=== PATIENT | male | born 1970 ===

== ENCOUNTER 2016-08-27 08:36 | Emergency (ER) | payer BC ==
--- NOTE | 2016-08-27 09:27 | ED PDOC ---
Arrival/HPI - General Chief Complaint: GI Problem Time Seen by Provider: 08/27/16 09:05 - History of Present Illness Narrative History of Present Illness (Text): 08/27/16 09:35 Patient is a 46 y/o M with hx of hemorrhoids presenting with hemorrhoids. Patient reports that he has had hemorrhoids for over 4 years. He reports hx of chronic constipation and he reports that he has pain with defecation secondary to his hemorrhoids. He denies bleeding or blood in stool (does report hx of ruptured hemorrhoid years ago). He reports that over the last week his hemorrhoids have become worse. He reports that he went to a hospital in [place] and was given medication for pain but nothing else. Denies fever, abdominal pain, chest pain, shortness of breath. Past Medical History - Provider Review Nursing Documentation Reviewed: Yes - Travel History Have you recently traveled outside [place] w/in the past 3 mons?: Yes If Yes, travel location?: [place] - Cardiac Hx Cardiac Disorders: Yes Hx Hypertension: Yes - Gastrointestinal Hx Gastrointestinal Disorders: Yes Hx Hemorrhoids: Yes - Psychiatric Hx Substance Use: No - Anesthesia Hx Anesthesia: Yes Hx Anesthesia Reactions: No Family/Social History Family/Social History: No Known Family HX Smoking Status: Light Smoker < 10 Cigarettes Daily Hx Alcohol Use: Yes Frequency of alcohol use: Socially Hx Substance Use: No Allergies/Home Meds Allergies/Adverse Reactions: Allergies No Known Allergies Allergy (Unverified 08/27/16 09:21) Review of Systems - Review of Systems Constitutional: absent: Fatigue, Weight Change, Fevers, Night Sweats Eyes: absent: Vision Changes ENT: absent: Hearing Changes Respiratory: absent: SOB, Cough, Sputum, Wheezing Cardiovascular: absent: Chest Pain, Palpitations, Edema Gastrointestinal: Constipation, Other (hemorrhoids). absent: Abdominal Pain, Diarrhea, Nausea, Vomiting, Appetite Changes, Hematochezia, Hematemesis, Anorexia Genitourinary Male: absent: Dysuria, Frequency, Hematuria, Urinary Output Changes Musculoskeletal: absent: Arthralgias Skin: absent: Rash Neurological: absent: Headache, Dizziness, Focal Weakness, Gait Changes, Speech Changes, Facial Droop, Disequilibrium Psychiatric: absent: Anxiety Physical Exam Vital Signs Temp Pulse Resp BP Pulse Ox 08/27/16 09:45 142/88 08/27/16 08:45 97.6 F 79 18 99 Temperature: Afebrile Blood Pressure: Normal Pulse: Regular Respiratory Rate: Normal Appearance: Positive for: Well-Appearing, Non-Toxic, Comfortable Pain Distress: None Mental Status: Positive for: Alert and Oriented X 3 - Systems Exam Head: Present: Atraumatic, Normocephalic Pupils: Present: PERRL Extroacular Muscles: Present: EOMI Conjunctiva: Present: Normal Mouth: Present: Moist Mucous Membranes Neck: Present: Normal Range of Motion Respiratory/Chest: Present: Clear to Auscultation, Good Air Exchange. No: Respiratory Distress, Accessory Muscle Use Cardiovascular: Present: Regular Rate and Rhythm, Normal S1, S2. No: Murmurs Abdomen: Present: Other (soft external hemorrhoids that are skin colored and reducible. normal sphincter tone. ). No: Tenderness, Distention, Peritoneal Signs, Rebound, Guarding Rectal: Present: Hemorrhoids, Normal Rectal Tone. No: Gross Blood, Melena Upper Extremity: Present: Normal Inspection Lower Extremity: Present: Normal Inspection Neurological: Present: GCS=15, CN II-XII Intact, Speech Normal Psychiatric: Present: Alert, Oriented x 3 Medical Decision Making ED Course and Treatment: 08/27/16 09:41 Patient has soft reducible external hemorrhoids. With the use of a artificial glass eye maker I gave patient detailed return instructions which he reports he understands due to hx of prior hemorrhoidal bleeding. He was given toradol IM, preparation h and stool softener in ED. He was instructed to use preparation h cream, sitz bath and stool softener. He was instructed to follow-up with PMD and GI due to constipation and for referral to surgery for further evaluation if desired. - Medication Orders Current Medication Orders: Phenylephrine HCl (Preparation H Suppositories) 1 supp VT STAT STA Stop: 08/27/16 10:57 Discontinued Medications Docusate Sodium (Colace) 100 mg PO STAT STA Stop: 08/27/16 09:23 Last Admin: 08/27/16 09:45 Dose: 100 mg Ketorolac Tromethamine (Toradol) 30 mg IM STAT STA Stop: 08/27/16 09:21 Last Admin: 08/27/16 09:33 Dose: 30 mg Oxycodone/Acetaminophen (Percocet 5/325 Mg Tab) 1 tab PO STAT STA Stop: 08/27/16 10:20 Last Admin: 08/27/16 10:26 Dose: 1 tab Disposition/Present on Arrival - Present on Arrival Any Indicators Present on Arrival: No - Disposition Have Diagnosis and Disposition been Completed?: No Diagnosis: Hemorrhoids Disposition: HOME/ ROUTINE Disposition Time: 09:24 Patient Plan: Discharge Patient Problems: Current Active Problems Problem Status Onset Hemorrhoids Acute Condition: GOOD Discharge Instructions (ExitCare): Hemorrhoids (ED), Sitz Bath (GEN) Print Language: [place] Additional Instructions: Use stool softener. Use preparation h as needed. Use sitz baths. Follow-up with general surgery for elective removal. Return to ED with any worsening in condition. Follow-up with PMD within 2 days for surgery referral. Prescriptions: Docusate Sodium [Colace] 100 mg PO DAILY #30 capsule Phenyleph/Pramoxin/Glycr/W.pet [Preparation H Cream] 1 appl RC DAILY #1 tub Referrals: Catalina Salas MD [Staff Provider] -
[2016-08-27 09:36] VITALS: PULSE 79; RESP 18; O2SAT 99
[2016-08-27] MEDS ORDERED: Oxycodone/Acetaminophen 5/325 mg Tab PO STA (10:19)
[2016-08-27] MEDS ORDERED: Phenylephrine 0.25 % Supp PR STA (10:56)
[2016-08-27 11:35] VITALS: BP 141/86; TEMP 98
== END 2016-08-27 11:38 | disposition home or self-care (01) ==
LOC: H.ER 08:36
DX: K64.9 Unspecified hemorrhoids (principal); I10 Essential (primary) hypertension; F17.210 Nicotine dependence, cigarettes, uncomplicated
CPT/HCPCS: 96372; 99284; J1885

== ENCOUNTER 2016-08-30 14:30 | Emergency (ER) | payer BC ==
[2016-08-30 14:57] VITALS: BP 132/71; PULSE 89; RESP 19; TEMP 98.5; O2SAT 100
--- NOTE | 2016-08-30 15:21 | ED PDOC ---
HPI: Abdomen Time Seen by Provider: 08/30/16 14:48 Chief Complaint (Nursing): Male Genitourinary Chief Complaint (Provider): Pain with bowel movements History Per: Patient History/Exam Limitations: no limitations Outside of [place] travel?: No Current Symptoms Are (Timing): Still Present Additional Complaint(s): Jameson Mahoney, a 46 year old male presents to the ED for hemorrhoids. The patient states that he was seen in the ED on August 29 for hemorrhoids and was given preparation H and colace stool softener. However, he states that the pain is still present primarily when he tries to move his bowels. Denies pain when idle/walking, blood from anus, nausea, vomiting, chills, fever. Past Medical History Reviewed: Historical Data, Nursing Documentation, Vital Signs Vital Signs: Last Vital Signs Temp 98.5 F 08/30/16 14:54 Pulse 89 08/30/16 14:54 Resp 19 08/30/16 14:54 BP 132/71 08/30/16 14:54 Pulse Ox 100 08/30/16 15:53 - Medical History PMH: HTN - Family History Family History: States: Unknown Family Hx - Home Medications Home Medications: Ambulatory Orders Medication Instructions Recorded Docusate Sodium [Colace] 100 mg PO DAILY #30 capsule 08/27/16 Phenyleph/Pramoxin/Glycr/W.pet 1 appl RC DAILY #1 tub 08/27/16 [Preparation H Cream] Hard Fat/Phenylephrine Westley 1 sup RC DAILY PRN #15 sup 08/30/16 [Anusol Suppository] - Allergies Allergies/Adverse Reactions: Allergies Allergy/AdvReac Type Severity Reaction Status Date / Time No Known Allergies Allergy Unverified 08/27/16 09:21 Review of Systems Constitutional: Negative for: Fever, Chills Gastrointestinal: Positive for: Other (Denies anal bleeding.). Negative for: Nausea, Vomiting Physical Exam - Reviewed Nursing Documentation Reviewed: Yes Vital Signs Reviewed: Yes - Physical Exam Appears: Positive for: Non-toxic, No Acute Distress Gastrointestinal/Abdominal: Positive for: Normal Exam, Bowel Sounds, Soft. Negative for: Tenderness Back: Positive for: Normal Inspection. Negative for: L CVA Tenderness, R CVA Tenderness Rectal: Positive for: Hemorrhoids (Hemorrhoids noted non thrombosed.) Neurologic/Psych: Positive for: Alert, Oriented, Gait - ECG O2 Sat by Pulse Oximetry: 100 (RA) Pulse Ox Interpretation: Normal Medical Decision Making Medical Decision Makin:48 Initial Impression: 46 year old male presenting with hemmorhoids Patient was advised to follow up with GI specialist and to continue taking colase. Patient will be prescribed anusol suppository. Scribe Attestation Documented by Kayla Irizarry acting as a scribe for Nicolasa Bullock PA-C. Scribe Attestation All medical record entries made by the Scribe were at my direction and personally dictated by me. I have reviewed the chart and agree that the record accurately reflects my personal performance of the history, physical exam, medical decision making, and the department course for this patient. I have also personally directed, reviewed, and agree with the discharge instructions and disposition. Disposition - Clinical Impression Clinical Impression: Hemorrhoids - Patient ED Disposition Is Patient to be Admitted: No Counseled Patient/Family Regarding: Diagnosis, Need For Followup, Rx Given - Disposition Referrals: [facility] [place] [Outside] Disposition: Routine/Home Disposition Time: 15:19 Condition: STABLE Prescriptions: Hard Fat/Phenylephrine [place]ley [Anusol Suppository] 1 sup RC DAILY PRN #15 sup PRN Reason: Constipation Instructions: Hemorrhoids (ED) Print Language: PERSIAN
== END 2016-08-30 15:33 | disposition home or self-care (01) ==
LOC: H.ER 14:30
DX: K64.9 Unspecified hemorrhoids (principal); I10 Essential (primary) hypertension